=== PATIENT | female | born 1965 | race Caucasian/White ===

== ENCOUNTER 2020-01-19 17:24 | Emergency (ER) | payer OTHER ==
[~2020-01-19] VITALS: Ht 162.6 cm; Wt 52.2 kg
[2020-01-19 17:35] VITALS: Ht 162.6 cm; Wt 52.2 kg
[2020-01-19 18:27] LABS: BASOPHIL % 0.4 % (0-2); PLATELET COUNT 188 x10^3mcL (130-400)
[2020-01-19 18:39] LABS: CARBON DIOXIDE 31.3 mmol/L (21-32); CHLORIDE SERUM 105 mmol/L (98-107); CREATININE SERUM 0.6 mg/dL (0.6-1.0); GFR1 > 60 mL/min; GLUCOSE SERUM 92 mg/dL (74-106); POTASSIUM SERUM 3.7 mmol/L (3.5-5.1); SODIUM SERUM 141 mmol/L (136-145)
[2020-01-19 19:59] VITALS: BP 119/72
== END 2020-01-19 20:00 | disposition home or self-care (01) ==
LOC: ED 17:24
PROVIDERS: Emergency Medicine
DX: R07.89 Other chest pain (principal); R10.13 Epigastric pain; Z90.49 Acquired absence of other specified parts of digestive tract
CPT/HCPCS: Q0092